=== PATIENT | male | born 1985 | race Caucasian/White ===

== ENCOUNTER 2020-01-01 11:16 | Emergency (ER) | payer BC, SELFPAY ==
[2020-01-01] MEDS ORDERED: Bacitracin 1 PK ONE (11:47)
[2020-01-01] MEDS ORDERED: HYDROcodone/Acetaminophen 5/325 mg Tablet ONE (11:48)
== END 2020-01-01 12:10 | disposition home or self-care (01) ==
LOC: MADERS 11:16
DX: T21.24XA Burn of second degree of lower back, initial encounter (principal); T23.252A Burn of second degree of left palm, initial encounter; T23.151A Burn of first degree of right palm, initial encounter; F17.210 Nicotine dependence, cigarettes, uncomplicated; X08.8XXA Exposure to other specified smoke, fire and flames, initial encounter
CPT/HCPCS: 16020